=== PATIENT | male | born 1955 | race Caucasian/White ===

== ENCOUNTER → 2016-06-15 | Outpatient (CLI) | payer MEDICARE, BC | LOC: RT 10:36 | DX: R10.13 Epigastric pain (principal) | CPT/HCPCS: 93005 ==

== ENCOUNTER → 2020-04-15 | Outpatient (CLI) | payer MEDICARE, OTHER ==
[~2020-04-15] MED LIST: OMNICEF 300 MG300 MG PO; ZITHROMAX250 MG PO
== END ==
LOC: KOH-I 15:00
DX: M79.605 Pain in left leg (principal); R60.0 Localized edema; R59.0 Localized enlarged lymph nodes
CPT/HCPCS: 93971

== ENCOUNTER → 2021-04-30 | Outpatient (CLI) | payer MEDICARE, OTHER | LOC: KOH-I 13:41 | DX: S46.911A Strain of unspecified muscle, fascia and tendon at shoulder and upper arm level, right arm, initial encounter (principal); M19.011 Primary osteoarthritis, right shoulder | CPT/HCPCS: 73030 ==